=== PATIENT | female | born 1980 | race Caucasian/White ===

== ENCOUNTER 2020-04-01 02:59 | Emergency (ER) | payer SELFPAY ==
--- NOTE | 2020-04-01 03:05 | ECG_ITS ---
Measurements Intervals [place] Rate: 115 P: 46 GA: 154 QRS: 130 QRSD: 141 T: 2 QT: 342 QTc: 474 Interpretive Statements SINUS TACHYCARDIA RIGHT BUNDLE BRANCH BLOCK BASELINE ARTIFACT- II, III, AVF ABNORMAL ECG Electronically Signed On 04-01-2020 7:15:14 CDT by Harley Dennis D.O.
[2020-04-01 03:09] VITALS: BP 140/81; PULSE 116; RESP 20; TEMP 36.8; O2SAT 100
--- NOTE | 2020-04-01 04:26 | ED.ANXIETY ---
HPI - Anxiety General Chief Complaint: Anxiety Stated Complaint: anxiety, painc attack, shaking, palpitations Time Seen by Provider: 04/01/20 04:12 History of Present Illness HPI narrative: Patient presents with her mother for severe anxiety. She is having palpitations, and cannot sleep. She has a new job, that she has not started because of COVID, and she keeps worrying about it. She started BuSpar earlier in the week, and has some Xanax 0.25 that she takes half of. She was able to sleep for 5 hours last night on his Xanax. She said her heart is just pounding, and she keeps looking at her apple wrist watch, which records her heart rate. She thought it might be A. fibKim DE LOS SANTOS complaint: anxiety and heart racing Related Data Allergies Allergy/AdvReac Type Severity Reaction Status Date / Time Penicillins Allergy Unknown Unknown Verified 03/31/20 14:00 Review of Systems Review of Systems: Narrative: CONSTITUTIONAL: Denies fever, chills, or sweats. EYES: Denies visual changes, redness, or discharge. ENT: Denies rhinorrhea, congestion, sore throat, or otalgia. CARDIOVASCULAR: Denies chest pain, but she has palpitations. RESPIRATORY: Denies cough or dyspnea. GASTROINTESTINAL: Denies abdominal pain, nausea, vomiting, or diarrhea. GENITOURINARY: Denies dysuria or hematuria. SKIN: Denies rash or itching. MUSCULOSKELETAL: Denies back pain, joint pain, or myalgia. NEUROLOGIC: Denies headache, numbness, or weakness. PSYCHIATRIC: She has severe anxiety PMFSH Past Medical History Medical History (Updated 04/01/20 @ 04:33 by Gladis Singh MD) Anxiety Essential (primary) hypertension Family History Family History Father Hypertension Family history of respiratory disorder, Onset Age: 69 Patient's father is Mother Hypertension Sibling Hypertension Social History Social History Smoking status: Never smoker Alcohol intake: never Gender identity (if verbalized by the patient): Female Exam Narrative: Exam Narrative: GENERAL: Well-appearing, well-nourished, and in no acute distress. Hair is oily and stringy, overweight., HEAD: Normocephalic, atraumatic. EYES: PERRLA and EOMI. ENT: Nares clear, no rhinorrhea or epistaxis. Mucous membranes moist. NECK: Supple. CHEST: Clear to auscultation. No respiratory distress. HEART: Regular rate and rhythm. No murmur heard. Normal peripheral pulses. ABDOMEN: Soft, nontender, nondistended, normal active bowel sounds. EXTREMITIES: Normal range of motion. No edema. SKIN: Warm, dry, no rash. NEURO: No focal deficits. Alert and oriented x3. PSYCH: Flat affect, seems worried. Const: General: alert Course Vital Signs Vital signs: Vital Signs Temperature 98.3 F 04/01/20 03:09 Pulse Rate 116 H 04/01/20 03:09 Respiratory Rate 04/01/20 03:09 Blood Pressure 140/81 04/01/20 03:09 Pulse Oximetry 100 04/01/20 03:09 Temperature 98.3 F 04/01/20 03:09 Pulse Rate 116 H 04/01/20 03:09 Respiratory Rate 04/01/20 03:09 Blood Pressure 140/81 04/01/20 03:09 Pulse Oximetry 100 04/01/20 03:09 Discharge Plan Discharge Clinical Impression: Anxiety Patient Disposition: Home, Self-Care Condition: Stable Instructions: Anxiety (ED) Prescriptions: New clonazepam 0.5 mg tablet 0.5 mg PO HS Qty: 10 RF: 0 No Action buspirone 10 mg tablet 10 mg PO BID Qty: 60 RF: 2 lisinopril-hydrochlorothiazide 20-12.5 mg tablet 1 tablet PO DAILY Qty: 90 RF: 2 alprazolam [Xanax] 0.25 mg tablet 0.25 mg PO DAILY PRN (Reason: anxiety) Qty: 7 RF: 0 Follow-up/Referrals: Suhail Vazquez MD [Primary Care Provider] - (Call your doctor's office and give an update, consider a referral for counseling) Time of Disposition: 04:29
[2020-04-01 04:47] VITALS: BP 157/76; PULSE 89; RESP 17; O2SAT 95
== END 2020-04-01 04:48 | disposition home or self-care (01) ==
PROVIDERS: Emergency Provider Emergency Medicine; PCP Family Medicine
DX: F41.9 Anxiety disorder, unspecified (principal); I10 Essential (primary) hypertension; R00.0 Tachycardia, unspecified; I45.10 Unspecified right bundle-branch block
CPT/HCPCS: 93005; 99283

== ENCOUNTER 2020-04-09 14:57 | Observation (INO) | payer SELFPAY ==
[2020-04-09] VITALS (14 sets, daily range): BP systolic 137–161; BP diastolic 85–98; PULSE 88–129; RESP 14–24; TEMP 36.3; O2SAT 93–100; BMI 33.7
--- NOTE | ~2020-04-09 | CT_ITS ---
EXAMINATION: CTA chest PE protocol DATE: 04/09/2020 17:33 INDICATION: Tachycardia and chest pain TECHNIQUE: Computed tomography angiography (CTA) of the chest was performed with 100 mL Omnipaque-350 intravenous contrast timed to evaluate the pulmonary arteries. Coronal maximum intensity projection 3D-reconstructions were created by the technologist. The dose-length product (DLP) was 516.01 mGy-cm. Automated exposure control and iterative reconstruction technique were employed. COMPARISON: None. FINDINGS: The pulmonary arteries are well-opacified. There is a filling defect in a subsegmental pulm onary arterial branch of the left lower lobe. The lungs are free of acute opacities. There is no pleu ral effusion or pneumothorax. No pathologically enlarged thoracic lymph nodes are identified. The hea rt size is normal. IMPRESSION: 1. Subsegmental pulmonary embolus in the left lower lobe. These findings were discussed with Dr. Tracey Terrell MD in the Emergency Department at 1811 hours on 04/09/2020. Reviewed, dictated and finalized at location A. IMPRESSION: 1. Subsegmental pulmonary embolus in the left lower lobe. These findings were d iscussed with Dr. Mara Terrell MD in the Emergency Department at 1811 hour s on 04/09/2020.
--- NOTE | 2020-04-09 15:22 | ECG_ITS ---
Measurements Intervals [place] Rate: 116 P: 59 OR: 155 QRS: 109 QRSD: 145 T: 2 QT: 338 QTc: 470 Interpretive Statements SINUS TACHYCARDIA RIGHT AXIS DEVIATION RIGHT BUNDLE BRANCH BLOCK BASELINE ARTIFACT- II, III, AVF ABNORMAL ECG Electronically Signed On 04-09-2020 15:36:18 CDT by Harley Dennis D.O.
--- NOTE | 2020-04-09 15:25 | ED.ARRPALP ---
HPI - Arrhythmia/Palpitations General Chief Complaint: Arrhythmia/Palpitations Stated Complaint: palpitations, short of breath Time Seen by Provider: 04/09/20 15:09 Source: patient Mode of arrival: ambulatory Limitations: no limitations History of Present Illness HPI narrative: This patient is a 39 year old female who presents for evaluation of palpitations. She states lost her job in December due to COVID 19 and she has been without a job since . She developed symptoms of anxiety in January. She has intermittent sensation of a knot in her throat since mid january. She also reports intermittent palpitations, heart racing and anxiousness as well. She has been evaluated by her PCP and she was started on Buspar and she is on day 10 of this medication. She is also getting scheduled for a holter monitor. She has come to ER today because she developed heart racing, palpitation and nonradiating chest pain when she woke up today. Her chest pressure was nonradiating and it only last a couple minutes. Patient states she has had these symptoms before but she wants to get checked to make sure there is nothing serious. MD complaint: palpitations Related Data Allergies Allergy/AdvReac Type Severity Reaction Status Date / Time Penicillins Allergy Unknown Rash Verified 04/09/20 15:08 Review of Systems Review of Systems: All systems reviewed & are unremarkable except as noted in HPI and below Constitutional: Constitutional: Denies chills, Reports fatigue, Denies fever(s) and Denies weakness Cardiovascular: Cardiovascular: Reports chest pain, Reports rapid heart rate, Denies radiating jaw, neck or arm pain, Denies dyspnea and Denies orthopnea Respiratory: Respiratory: Denies cough, Denies dyspnea and Denies wheezing Gastrointestinal: Gastrointestinal: Denies abdominal pain, Denies diarrhea, Denies nausea and Denies vomiting Integumentary/Breasts: Skin/Breast: Denies breast pain Neurologic: Denies focal weakness Psychiatric: Psychiatric: Reports anxiety PMFSH Social History Social History Smoking status: Never smoker Alcohol intake: never Gender identity (if verbalized by the patient): Female Exam Narrative: Exam Narrative: GENERAL: Well-appearing, well-nourished, and in no acute distress. HEAD: Normocephalic, atraumatic EYES: PERRLA and EOMI, conjunctiva clear without discharge NECK: Supple, without lymphadenopathy or mass RESPIRATORY: No respiratory distress, Airway patent, Respirations non-labored, Clear to auscultation without rales, rhonchi or wheeze HEART: Regular rate and rhythm. No murmur heard. Normal peripheral pulses. ABDOMEN: Soft, nontender, nondistended, normal active bowel sounds. No masses. No rebound or guarding, No organomegaly. EXTREMITIES: No edema, normal strength with full range of motion. SKIN: Warm, dry, normal color without rash NEURO: Alert and oriented x3. CN 2-12 grossly intact. No focal deficits. PSYCH: Normal mood and affect. Course Reevaluation(s) Reevaluation #1: I have discussed with patient that she has PE and she will be admitted Date: 04/09/20 Time: 18:56 Consultations Consultation #1: I discussed case with Lakshmi Torres who accepts patient for admission. Date: 04/09/20 Time: 18:57 Vital Signs Vital signs: Vital Signs Pulse Rate 129 H 04/09/20 15:03 Respiratory Rate 24 H 04/09/20 15:03 Blood Pressure 161/93 H 04/09/20 15:03 Pulse Oximetry 99 04/09/20 15:03 Pulse Rate 95 04/09/20 19:15 Respiratory Rate 17 04/09/20 19:15 Blood Pressure 154/98 H 04/09/20 19:03 Pulse Oximetry 99 04/09/20 19:15 MDM - Arrhythmia/Palpitations Lab Data Attestation: I reviewed the patient's lab results. Result diagrams: 04/09/20 15:31 04/09/20 15:31 Labs: Lab Results 04/09/20 04/09/20 04/09/20 Range/Units 15:31 15:31 15:31 WBC 11.4 H (4.5-10.0) K/mm3 RBC 4.75
[2020-04-09 15:38] LABS: Basophils Percent Auto 0.4 % (0.2-1.2); Eosinophils Absolute Auto 0.1 K/mm3 (0-0.3); Eosinophils Percent Auto 0.6 % (0-4.4); Hematocrit 39.5 % (37.0-47.0); Hemoglobin 13.9 g/dL (12.0-15.0); Immature Granulocyte Absolute 0.04 K/mm3 (0.00-0.031); Immature Granulocyte Percent A 0.4 % (0-0.5); Lymphocytes Absolute Auto 2.77 K/mm3 (0.9-3.2); Lymphocytes Percent Auto 24.4 % (18.3-44.2); Mean Corpuscular HGB Conc 35.2 g/dl (32-36); Mean Corpuscular Hemoglobin 29.3 pg (26-34); Mean Corpuscular Volume 83.2 fl (80-100); Mean Platelet Volume 9.2 fl (7.4-10.4); Monocytes Absolute Auto 0.7 K/mm3 (0.1-0.6); Monocytes Percent Auto 6.4 % (2.6-8.5); Neutrophils Absolute Auto 7.7 K/mm3 (1.3-6.7); Neutrophils Percent Auto 67.8 % (45.5-73.1); Platelet Count Result 444 k/mm3 (150-375); Red Blood Count 4.75 M/mm3 (4.2-5.4); Red Cell Distribution Width 12.1 % (11.5-14.5); White Blood Count 11.4 K/mm3 (4.5-10.0)
[2020-04-09 16:00] LABS: Prothrombin Time 12.7 Seconds (11.1-14.7)
[2020-04-09 16:25] LABS: Alanine Aminotransferase 21 U/L (4-35); Albumin Level 4.9 g/dL (3.5-5.1); Alkaline Phosphatase 62 U/L (38-126); Aspartate Amino Transferase 25 U/L (14-36); Bilirubin,Total 0.7 mg/dL (0.2-1.3); Blood Urea Nitrogen 10 mg/dL (7-17); Calcium 9.6 mg/dL (8.4-10.2); Carbon Dioxide 24 mmol/L (22-30); Chloride 100 mmol/L (98-107); Estimated CRCL calculation 144 ml/min; Estimated Glomerular Filt Rate > 60; Glucose 106 mg/dL (65-105); Potassium 3.7 mmol/L (3.4-5.0); Sodium 137 mmol/L (137-145)
[2020-04-09 16:33] LABS: Troponin I < 0.012 ng/mL (0.000-0.034)
--- NOTE | 2020-04-09 17:12 | PC.NURSE ---
Pt continues to deny cp, states she's a little less anxious than on arrival, and palpitations have decreased. Made aware of pending labs and possibility of need for 3 hr troponin. Pt is refusing a test there's no way that I'm , and states will sign a release.
[2020-04-09 18:02] LABS: Thyroid Stimulating Hormone Reflex 0.693 uIU/mL (0.465-4.68)
[2020-04-09] MEDS: ENOXAPARIN 120 MG/0.8 ML SYRINGE SUB-Q (19:05)
[2020-04-09 19:09] LABS: Troponin I < 0.012 ng/mL (0.000-0.034)
--- NOTE | 2020-04-09 19:23 | PC.NURSE ---
Report to LYNDSAY Grey, to continue care. Awaiting admit orders and bed assignment.
--- NOTE | 2020-04-09 20:25 | ADMGEN ---
This patient, Kirsten Coleman, was admitted to Medical Room 347-. Patient/family oriented to hospital policies and general routines including ID bracelet, bed and alarms, visiting hours, pain management, procedures, bathroom and other care routines, personal items, smoking policy, room service/diet, and visiting hours. Valuables list has been completed. Information on how to activate the Rapid Response Team has been discussed. Patient/Family are encouraged to report perceived risks to care and to ask questions if they do not understand what they are told or what they should do.
--- NOTE | 2020-04-09 23:10 | PM.IMHP ---
H&P: HPI History of Present Illness Chief complaint: PE Narrative: Kirsten Coleman is a 39 year old female who deals with some anxiety. The patient stated since this past January she has had this lump in her throat and thought that is possibly anxiety. On 02/15 she had a telephone visit and was diagnosed with anxiety. This month the patient was seen on 03/31 2020 and had had EKGs her palpitations showing right bundle-branch block. Patient was started on BuSpar but was getting upset stomach from it. On 04/01 she is having the same symptoms and was started on clonazepam. She stated she did want to take clonazepam and never started it. On omeprazole for possible GERD and was given Zofran. She was also ordered Xanax for anxiety. The patient presented to the emergency room with evaluation of palpitations. She lost her job back in December in her new job did not start due to the COVID outbreak. She has had a not the back of her throat since mid January. She has had some chest pressure is well that was nonradiating. The patient was scheduled for getting a Holter monitor and has not done so he as of yet. The patient was fearful of medical treatment and she has no insurance at this time. Her insurance ran out her new insurance will not kick in until about 60-90 days after she starts her new job. She had a CT pulmonary which was read as subsegmental pulmonary embolus in the left lower lobe. Patient was started on subcu Lovenox. The patient is on room air. I suggested that the patient be discharged to home was Xarelto. However the patient does not have any medical insurance. We discussed possibly starting Xarelto. [employer]arelto offers some free to discount cards. Was read as sinus tachycardia with a right bundle branch block which was seen on previous EKGs. At times her heart rate will get up to the 150s when she gets up to the bathroom. Date of service 04/09/2020 Review of Systems Review of Systems: All systems reviewed & are unremarkable except as noted in HPI and below Constitutional: Constitutional: Reports as per HPI and Reports no additional constitutional complaints Eyes: Eyes: Reports as per HPI and Reports no additional eye complaints ENT: Reports system reviewed and no additional complaints, except as documented and Reports Normal hearing present Cardiovascular: Cardiovascular: Reports no additional cardiovascular complaints Respiratory: Respiratory: Reports no additional respiratory complaints and Reports no additional respiratory complaints Gastrointestinal: Gastrointestinal: Reports as per HPI and Reports no additional gastrointestinal complaints Musculoskeletal: Musculoskeletal: Reports no additional musculoskeletal complaints Integumentary/Breasts: Skin/Breast: Reports system reviewed and no additional complaints, except as docu and Reports as per HPI Neurologic: Reports system reviewed and no additional complaints, except as documented, Reports as per HPI and Reports Normal hearing present Psychiatric: Psychiatric: Reports no additional psychiatric complaints and Reports as per HPI Endocrine: Endocrine: Reports no additional endocrine complaints Hematologic/Lymphatic: Hematologic/Lymphatic: Reports no additional hematologic/lymphatic complaints Allergic/Immunologic: Allergic/Immunologic: Reports no additional allergic/immunologic complaints PMF Past Medical History Medical History (Updated 04/09/20 @ 23:26 by Lakshmi Torres NP) Anxiety Bundle branch block Right Essential (primary) hypertension Surgical History Surgical History (Updated 04/09/20 @ 23:19 by Lakshmi Torres NP) S/P hernia repair Ventral hernia repair at the age of 9 Family History Family History Father Family history of respiratory disorder, Onset Age: 69 Patient's father is Hypertension Asthma Chronic obstructive pulmonary disease Mother Hypertension Sibling Hy
[2020-04-10] VITALS (7 sets, daily range): BP systolic 127–135; BP diastolic 72–78; PULSE 78–98; RESP 14–22; TEMP 36.2–36.7; O2SAT 97–100
[2020-04-10] MEDS: NAPROXEN SODIUM 220 MG TABLET 440 MG PO (01:04)
[2020-04-10] MEDS: ALPRAZOLAM 0.25 MG TABLET 0.5 MG PO (04:33)
[2020-04-10 06:12] LABS: Hematocrit 36.7 % (37.0-47.0); Hemoglobin 12.7 g/dL (12.0-15.0); Mean Corpuscular HGB Conc 34.6 g/dl (32-36); Mean Corpuscular Hemoglobin 28.7 pg (26-34); Mean Corpuscular Volume 82.8 fl (80-100); Mean Platelet Volume 8.6 fl (7.4-10.4); Platelet Count Result 303 k/mm3 (150-375); Red Blood Count 4.43 M/mm3 (4.2-5.4); Red Cell Distribution Width 12.1 % (11.5-14.5)
[2020-04-10 06:26] LABS: Blood Urea Nitrogen 14 mg/dL (7-17); Carbon Dioxide 27 mmol/L (22-30); Chloride 98 mmol/L (98-107); Estimated CRCL calculation 95 ml/min; Estimated Glomerular Filt Rate > 60; Glucose 89 mg/dL (65-105); Potassium 3.9 mmol/L (3.4-5.0); Sodium 135 mmol/L (137-145)
[2020-04-10] MEDS: PANTOPRAZOLE 40 MG TABLET PO (08:33)
[2020-04-10] MEDS: hydroCHLOROthiazide 12.5 MG CAPSULE PO (08:33)
[2020-04-10] MEDS: lisinopriL 20 MG TABLET PO (08:33)
[2020-04-10] MEDS: busPIRone HCL 10 MG TABLET PO (08:33)
[2020-04-10] MEDS: ENOXAPARIN 100 MG/ML SYRINGE 95 MG SUB-Q ×2 (09:03→15:10)
--- NOTE | 2020-04-10 14:01 | PM.DS ---
DS: Admitting Diagnosis Admitting Diagnosis Admitting Diagnosis: Other pulmonary embolism without acute cor pulmonale DS: Discharge Diagnosis Discharge Diagnosis (1) Pulmonary embolism: Qualifiers: Pulmonary embolism type: single subsegmental (without acute cor pulmonale) Qualified Code(s): I26.93 - Single subsegmental pulmonary embolism without acute cor pulmonale Code(s): I26.99 - Other pulmonary embolism without acute cor pulmonale Status: Acute (2) Essential (primary) hypertension: Code(s): I10 - Essential (primary) hypertension Status: Chronic (3) Anxiety: Code(s): F41.9 - Anxiety disorder, unspecified Status: Acute (4) Bundle branch block: Code(s): I45.4 - Nonspecific intraventricular block Status: Chronic (5) GERD with esophagitis: Code(s): K21.0 - Gastro-esophageal reflux disease with esophagitis Status: Chronic DS: Summary Hospital Course Reason for hospitalization: Pulmonary Embolism Hospital Course: Mrs. Coleman is a 39 y.o. female with PMH significant for anxiety, right bundle branch block, and essential hypertension who presented to the emergency department for the evaluation of palpitations which began 12 days ago, anxiety, and non-radiating chest pressure which lasted for a couple minutes. She was prescribed buspar by her PCP 10 days prior. Initial workup in the ED revealed WBC 11.4, Hb 13.9, Hct 39.5, platelet count 444, D-Dimer 0.8, troponin was <0.012x2, and TSH 0.693. Metabolic panel was unremarkable. CTA chest revealed subsegmental PE in the left lower lobe with no other opacities, effusion, or pneumothorax. She was treated with lovenox SQ in the ED. She was admitted to the hospitalist service for further evaluation and treatment. She does not have insurance at this time so a care coordination consult was placed and she was given a [employer] card for a free 30 day supply. She was monitored on telemetry which revealed sinus tachycardia with activity with rates up to 130-150s but remained asymptomatic during these episodes and did not complain of lightheadedness, dizziness, or weakness. She had very infrequent PVCs. She reported that her palpitations have only been present for 12 days so I suspect that her sinus tachycardia is due to her PE and advised that she follow-up with her PCP and possibly cardiology should her palpitations persist despite treatment of her PE. She requested to go home. She did not require oxygen and was stable on room air without dyspnea. I advised that she follow-up with her PCP within 5 days. She is planning to begin her new job next so I advised she follow-up with her PCP prior to this. All additional questions and concerns were addressed. She was discharged in stable condition on the afternoon of 04/10/2020. Status at Discharge Functional status at discharge: independent ambulation Overall status at discharge: patient is back to baseline Time Spent with Patient Time attestation: Total time spent providing and/or coordinating discharge services: 30 minutes Exam Narrative: Exam Narrative: Initial vitals at presentation: Pulse Resp BP Pulse Ox 129 H 24 H 161/93 H 99 04/09/20 15:03 04/09/20 15:03 04/09/20 15:03 04/09/20 15:03 Vitals at discharge: Temp Pulse Resp BP Pulse Ox 98.0 F 98 18 127/72 97 04/10/20 15:13 04/10/20 15:13 04/10/20 15:13 04/10/20 15:13 04/10/20 15:13 General: Pleasant, well-developed and well-nourished 39 y.o. female who is sitting in the semi-recumbent position in bed resting. She is in no acute distress. HEENT: Normocephalic and atraumatic. Conjunctivae and lids normal. EOMI. Mucous membranes moist. Posterior pharynx without erythema or exudate. N
--- NOTE | 2020-04-10 14:40 | PC.NURSE ---
Per the pharmacist Santa, pt can receive tonights dose of lovenox early as early as 1500 or after as requested per Leola RODRÍGUEZ.
--- NOTE | 2020-04-11 12:54 | PC.NURSE ---
Received a call from the pt with concerns of her symptoms that were still occuring from her PE. She stated she was still having palpations, slightly short of breath, and having some discomfort in her chest but it wasn't anything terrible. I encouraged her to call her PCP exchange number to let them know what was going on. They may direct her to the ER but the symptoms she was having even while in the hospital for the PE may take some time to resolve.
== END 2020-04-10 15:46 | disposition home or self-care (01) ==
LOC: ANHED 19:04 → ANH3MED 21:01
PROVIDERS: Nurse Practitioner; Admitting Provider Family Medicine; Emergency Provider General Practice; PCP Family Medicine; Visit Provider Physician Assistant
DX: I26.99 Other pulmonary embolism without acute cor pulmonale (principal); F41.8 Other specified anxiety disorders; I45.10 Unspecified right bundle-branch block; I10 Essential (primary) hypertension; K21.0 Gastro-esophageal reflux disease with esophagitis; R06.02 Shortness of breath
CPT/HCPCS: 36415; 71275; 80048; 80053; 83735; 84443; 84484; 85025; 85027; 85380; 85610; 85730; 93005; 96372; 99285; A9270; G0378; G0379; J1650; Q9967

== ENCOUNTER → 2020-11-24 08:19 | Outpatient (CLI) | payer OTHER, SELFPAY ==
--- NOTE | ~2020-11-24 | CT_ITS ---
EXAMINATION: CTA chest PE protocol DATE: 11/24/2020 09:27 INDICATION: Subsegmental pulmonary embolus of left lower lobe on 04/09/2020 TECHNIQUE: Computed tomography angiography (CTA) of the chest was performed with 100 mL Omnipaque-350 intravenous contrast timed to evaluate the pulmonary arteries. Coronal maximum intensity projection 3D-reconstructions were created by the technologist. Automated exposure control and iterative reconst ruction technique were employed. Exam dose: 500.22 mGy-cm total exam DLP. COMPARISON: 04/09/2020 CT pulmonary scan FINDINGS: Right thyroid lobe enlargement, likely due to thyroid goiter. Normal heart size. No pericardial effusion. No thoracic aortic aneurysm or dissection. There is moderate opacification the pulmonary arteries and no evidence of pulmonary embolism. The lungs are clear of infiltrate or consolidation. No pulmonary mass lesion is evident. Included skeletal structures are unremarkable. IMPRESSION: No evidence of pulmonary embolism Reviewed, dictated and finalized at Location [facility]. Reviewed, dictated and finalized at location B. ICAL CARE NURSE
== END ==
PROVIDERS: PCP Family Medicine; Visit Provider Family Medicine
DX: I26.93 Single subsegmental thrombotic pulmonary embolism without acute cor pulmonale (principal)
CPT/HCPCS: 71275; Q9967

== ENCOUNTER 2020-11-27 08:34 | Outpatient (CLI) | payer OTHER, SELFPAY ==
[2020-11-27 08:52] LABS: Basophils Percent Auto 0.3 % (0.2-1.2); Eosinophils Absolute Auto 0.2 K/mm3 (0-0.3); Eosinophils Percent Auto 3.3 % (0-4.4); Hematocrit 29.4 % (37.0-47.0); Hemoglobin 8.7 g/dL (12.0-15.0); Immature Granulocyte Absolute 0.01 K/mm3 (0.00-0.031); Immature Granulocyte Percent A 0.2 % (0-0.5); Lymphocytes Absolute Auto 1.54 K/mm3 (0.9-3.2); Lymphocytes Percent Auto 25.7 % (18.3-44.2); Mean Corpuscular HGB Conc 29.6 g/dl (32-36); Mean Corpuscular Hemoglobin 21.6 pg (26-34); Mean Platelet Volume 8.6 fl (7.4-10.4); Monocytes Absolute Auto 0.4 K/mm3 (0.1-0.6); Monocytes Percent Auto 6.7 % (2.6-8.5); Neutrophils Absolute Auto 3.8 K/mm3 (1.3-6.7); Neutrophils Percent Auto 63.8 % (45.5-73.1); Platelet Count Result 280 k/mm3 (150-375); Red Blood Count 4.03 M/mm3 (4.2-5.4); Red Cell Distribution Width 16.9 % (11.5-14.5)
[2020-11-27 09:18] LABS: Anisocytosis 1+ (NORMAL); Hypochromasia 1+ (NORMAL); Ovalocytes 1+ (NORMAL); Platelet Estimate Adequate (Adequate)
[2020-11-27 09:44] LABS: Thyroid Stimulating Hormone 0.945 uIU/mL (0.465-4.680)
== END 2020-11-27 08:35 | disposition home or self-care (01) ==
PROVIDERS: PCP Family Medicine; Visit Provider Nurse Practitioner Family
DX: E04.9 Nontoxic goiter, unspecified (principal); D64.9 Anemia, unspecified
CPT/HCPCS: 36415; 84443; 85025

== ENCOUNTER 2020-12-04 08:18 | Outpatient (CLI) | payer OTHER, SELFPAY ==
[2020-12-04 08:45] LABS: Basophils Percent Auto 0.9 % (0.2-1.2); Eosinophils Absolute Auto 0.2 K/mm3 (0-0.3); Eosinophils Percent Auto 3.9 % (0-4.4); Hematocrit 27.9 % (37.0-47.0); Hemoglobin 8.3 g/dL (12.0-15.0); Immature Granulocyte Absolute 0.01 K/mm3 (0.00-0.031); Immature Granulocyte Percent A 0.2 % (0-0.5); Lymphocytes Absolute Auto 1.37 K/mm3 (0.9-3.2); Lymphocytes Percent Auto 29.7 % (18.3-44.2); Mean Corpuscular HGB Conc 29.7 g/dl (32-36); Mean Corpuscular Hemoglobin 22.1 pg (26-34); Mean Corpuscular Volume 74.2 fl (80-100); Mean Platelet Volume 8.7 fl (7.4-10.4); Monocytes Absolute Auto 0.3 K/mm3 (0.1-0.6); Monocytes Percent Auto 7.4 % (2.6-8.5); Neutrophils Absolute Auto 2.7 K/mm3 (1.3-6.7); Neutrophils Percent Auto 57.9 % (45.5-73.1); Platelet Count Result 320 k/mm3 (150-375); Red Blood Count 3.76 M/mm3 (4.2-5.4); Red Cell Distribution Width 18.6 % (11.5-14.5); White Blood Count 4.6 K/mm3 (4.5-10.0)
[2020-12-04 09:18] LABS: Platelet Estimate Adequate (Adequate)
[2020-12-04 09:19] LABS: Anisocytosis 1+ (NORMAL); Ovalocytes 1+ (NORMAL)
== END 2020-12-04 08:19 | disposition home or self-care (01) ==
LOC: ANHLAB 08:19
PROVIDERS: PCP Family Medicine; Visit Provider Nurse Practitioner Family
DX: D64.9 Anemia, unspecified (principal)
CPT/HCPCS: 36415; 85025

== ENCOUNTER → 2020-12-06 07:52 | Outpatient (CLI) | payer OTHER, SELFPAY ==
--- NOTE | ~2020-12-06 | US_ITS ---
EXAMINATION: US thyroid DATE: 12/06/2020 08:16 INDICATION: Nontoxic goiter. TECHNIQUE: Multiple ultrasound images of the thyroid were obtained. COMPARISON: Chest CT 11/24/2020 FINDINGS: The right thyroid lobe measures 5.6 x 2.5 x 2.3 cm. The left thyroid lobe measures 3.0 x 2.2 x 2.3 c m. In the left thyroid lobe, there is a 4 mm nodule, likely not clinically significant. In the right thyroid lobe, there is a 3.0 cm predominantly solid, hypoechoic, koclw-rnxt-hory nodule with smooth margin without echogenic foci (TI-RADS TR4). IMPRESSION: 1. Multinodular goiter. Ultrasound-guided fine-needle aspiration of the right thyroid nodule is recom mended. Reviewed, dictated and finalized at location B. A [employer] HEL[employer] IMPRESSION: 1. Multinodular goiter. Ultrasound-guided fine-needle aspiration of the right t hyroid nodule is recommended.
== END ==
PROVIDERS: PCP Family Medicine; Visit Provider Nurse Practitioner Family
DX: E04.2 Nontoxic multinodular goiter (principal)
CPT/HCPCS: 76536

== ENCOUNTER 2020-12-11 07:55 | Outpatient (CLI) | payer OTHER, SELFPAY ==
[2020-12-11 08:22] LABS: Basophils Percent Auto 0.6 % (0.2-1.2); Eosinophils Absolute Auto 0.2 K/mm3 (0-0.3); Eosinophils Percent Auto 3.9 % (0-4.4); Hematocrit 30.2 % (37.0-47.0); Immature Granulocyte Absolute 0.01 K/mm3 (0.00-0.031); Immature Granulocyte Percent A 0.2 % (0-0.5); Lymphocytes Absolute Auto 1.21 K/mm3 (0.9-3.2); Lymphocytes Percent Auto 22.4 % (18.3-44.2); Mean Corpuscular HGB Conc 29.8 g/dl (32-36); Mean Corpuscular Hemoglobin 22.6 pg (26-34); Mean Corpuscular Volume 75.7 fl (80-100); Mean Platelet Volume 8.6 fl (7.4-10.4); Monocytes Absolute Auto 0.4 K/mm3 (0.1-0.6); Monocytes Percent Auto 7.6 % (2.6-8.5); Neutrophils Absolute Auto 3.5 K/mm3 (1.3-6.7); Neutrophils Percent Auto 65.3 % (45.5-73.1); Platelet Count Result 408 k/mm3 (150-375); Red Blood Count 3.99 M/mm3 (4.2-5.4); Red Cell Distribution Width 20.4 % (11.5-14.5); White Blood Count 5.4 K/mm3 (4.5-10.0)
[2020-12-11 09:39] LABS: Hypochromasia 3+ (NORMAL); Platelet Estimate Adequate (Adequate)
== END 2020-12-11 07:56 | disposition home or self-care (01) ==
PROVIDERS: Family Provider Internal Medicine; PCP Family Medicine; Visit Provider Nurse Practitioner Family
DX: D64.9 Anemia, unspecified (principal)
CPT/HCPCS: 36415; 85025

== ENCOUNTER 2021-01-01 09:05 | Outpatient (CLI) | payer OTHER, SELFPAY ==
[2021-01-01 09:43] LABS: Hematocrit 34.2 % (37.0-47.0); Hemoglobin 10.6 g/dL (12.0-15.0); Mean Corpuscular Hemoglobin 24.1 pg (26-34); Mean Corpuscular Volume 77.7 fl (80-100); Mean Platelet Volume 9.1 fl (7.4-10.4); Platelet Count Result 278 k/mm3 (150-375); Red Cell Distribution Width 22.5 % (11.5-14.5); White Blood Count 5.5 K/mm3 (4.5-10.0)
[2021-01-01 10:14] LABS: Iron 61 ug/dL (37-170)
[2021-01-01 10:23] LABS: Percent Iron Saturation 16 % (20-50)
== END 2021-01-01 09:06 | disposition home or self-care (01) ==
PROVIDERS: PCP Family Medicine; Visit Provider Family Medicine
DX: D64.9 Anemia, unspecified (principal)
CPT/HCPCS: 36415; 83540; 83550; 85027

== ENCOUNTER 2021-01-29 07:05 | Outpatient (CLI) | payer OTHER, SELFPAY ==
[2021-01-29 07:33] LABS: Basophils Percent Auto 0.5 % (0.2-1.2); Eosinophils Absolute Auto 0.2 K/mm3 (0-0.3); Eosinophils Percent Auto 3.9 % (0-4.4); Hematocrit 35.4 % (37.0-47.0); Hemoglobin 11.3 g/dL (12.0-15.0); Immature Granulocyte Absolute 0.01 K/mm3 (0.00-0.031); Immature Granulocyte Percent A 0.2 % (0-0.5); Lymphocytes Absolute Auto 1.67 K/mm3 (0.9-3.2); Lymphocytes Percent Auto 29.6 % (18.3-44.2); Mean Corpuscular HGB Conc 31.9 g/dl (32-36); Mean Corpuscular Hemoglobin 25.3 pg (26-34); Mean Corpuscular Volume 79.2 fl (80-100); Mean Platelet Volume 8.9 fl (7.4-10.4); Monocytes Absolute Auto 0.4 K/mm3 (0.1-0.6); Monocytes Percent Auto 6.4 % (2.6-8.5); Neutrophils Absolute Auto 3.4 K/mm3 (1.3-6.7); Neutrophils Percent Auto 59.4 % (45.5-73.1); Platelet Count Result 234 k/mm3 (150-375); Red Blood Count 4.47 M/mm3 (4.2-5.4); Red Cell Distribution Width 20.1 % (11.5-14.5); White Blood Count 5.6 K/mm3 (4.5-10.0)
[2021-01-29 08:06] LABS: Iron 98 ug/dL (37-170)
[2021-01-29 08:15] LABS: Percent Iron Saturation 28 % (20-50)
== END 2021-01-29 07:06 | disposition home or self-care (01) ==
PROVIDERS: PCP Family Medicine; Visit Provider Physician Assistant Medical
DX: D50.9 Iron deficiency anemia, unspecified (principal)
CPT/HCPCS: 36415; 83540; 83550; 85025

== ENCOUNTER 2021-03-19 09:48 | Outpatient (CLI) | payer OTHER, SELFPAY ==
[2021-03-19 10:08] LABS: Basophils Percent Auto 0.8 % (0.2-1.2); Eosinophils Absolute Auto 0.2 K/mm3 (0-0.3); Eosinophils Percent Auto 3.3 % (0-4.4); Hematocrit 36.2 % (37.0-47.0); Hemoglobin 11.8 g/dL (12.0-15.0); Immature Granulocyte Absolute 0.01 K/mm3 (0.00-0.031); Immature Granulocyte Percent A 0.2 % (0-0.5); Lymphocytes Absolute Auto 1.53 K/mm3 (0.9-3.2); Lymphocytes Percent Auto 29.9 % (18.3-44.2); Mean Corpuscular HGB Conc 32.6 g/dl (32-36); Mean Corpuscular Hemoglobin 27.8 pg (26-34); Mean Corpuscular Volume 85.2 fl (80-100); Mean Platelet Volume 8.6 fl (7.4-10.4); Monocytes Absolute Auto 0.4 K/mm3 (0.1-0.6); Monocytes Percent Auto 7.8 % (2.6-8.5); Platelet Count Result 214 k/mm3 (150-375); Red Blood Count 4.25 M/mm3 (4.2-5.4); Red Cell Distribution Width 15.5 % (11.5-14.5); White Blood Count 5.1 K/mm3 (4.5-10.0)
[2021-03-19 10:48] LABS: Iron 161 ug/dL (37-170)
[2021-03-19 10:58] LABS: Percent Iron Saturation 50 % (20-50)
== END 2021-03-19 09:49 | disposition home or self-care (01) ==
LOC: ANHLAB 09:50
PROVIDERS: PCP Family Medicine; Visit Provider Physician Assistant Medical
DX: D50.9 Iron deficiency anemia, unspecified (principal)
CPT/HCPCS: 36415; 83540; 83550; 85025

== ENCOUNTER 2024-02-06 12:28 | Outpatient (CLI) | payer BC, SELFPAY ==
--- NOTE | ~2024-02-06 | MM_ITS ---
EXAMINATION: MM screening gregg BI w winnie HISTORY: Screening TECHNIQUE: Craniocaudal and mediolateral oblique 3-D tomosynthesis images were obtained and synthetic 2-D images were generated. CAD analysis was submitted and interpreted. COMPARISON: No prior mammogram is available for comparison at this institution. BREAST PARENCHYMAL COMPOSITION: Not dense: There are scattered areas of fibroglandular density. FINDINGS: There is a mass in the lower inner quadrant of the right breast, middle third. There is a m ass in the upper outer quadrant of the left breast, middle third. There are no suspicious calcificati ons or architectural distortion. IMPRESSION: 1. Bilateral breast masses. 2. Additional mammographic views and possible breast ultrasound are recommended. BI-RADS Category 0: Incomplete: Needs additional imaging evaluation. Reviewed, dictated and finalized at location A. IMPRESSION: 1. Bilateral breast masses. 2. Additional mammographic views and possible breast ultrasound are recommended . BI-RADS Category 0: Incomplete: Needs additional imaging evaluation.
== END 2024-02-06 12:29 ==
LOC: MICIMG 12:29
PROVIDERS: PCP Nurse Practitioner Family; Visit Provider Nurse Practitioner Family
DX: Z12.31 Encounter for screening mammogram for malignant neoplasm of breast (principal); R92.8 Other abnormal and inconclusive findings on diagnostic imaging of breast
CPT/HCPCS: 77063; 77067

== ENCOUNTER 2024-03-05 10:31 | Outpatient (CLI) | payer BC, SELFPAY ==
--- NOTE | ~2024-03-05 | MMUS_ITS ---
EXAMINATION: MM diagnostic gregg BI w winnie, US breast BI limited HISTORY: Bilateral breast masses seen on recent examination. TECHNIQUE: Additional 3-D tomosynthesis images of the breasts were performed and synthetic 2-D images were generated. CAD analysis was submitted and interpreted. High resolution limited bilateral breast ultrasound was performed. COMPARISON: 02/06/2024 BREAST PARENCHYMAL COMPOSITION: Not dense: There are scattered areas of fibroglandular density. FINDINGS: MAMMOGRAPHIC FINDINGS: There is a mass in the lower inner quadrant of the right breast, middle third. There is a mass in the upper outer quadrant of the left breast, posteriorly. There are no suspicious calcifications or arch itectural distortion in either breast. ULTRASOUND: Limited right breast ultrasound: At 6:00, 4 cm from the nipple, there is a 7 mm cyst corresponding to the mammographic finding. No other masses are seen. Limited left breast ultrasound: At 1:00, 9 cm from the nipple there is an oval hypoechoic circumscrib ed mass with parallel orientation, no significant posterior features and no internal vascularity ceci uring 9 x 7 x 4 mm, likely benign. IMPRESSION: 1. No evidence for malignancy in the right breast. Benign finding. BI-RADS Category 2. 2. Probable benign left breast mass at 1:00, 9 cm from the nipple. BI-RADS CATEGORY 3-PROBABLY BENIGN FINDING RECOMMENDATION: Six-month follow-up diagnostic left mammogram and ultrasound recommended. Reviewed, dictated and finalized at location B. IMPRESSION: 1. No evidence for malignancy in the right breast. Benign finding. BI-RADS Marie gory 2. 2. Probable benign left breast mass at 1:00, 9 cm from the nipple. BI-RADS CATEGORY 3-PROBABLY BENIGN FINDING RECOMMENDATION: Six-month follow-up diagnostic left mammogram and ultrasound re commended.
== END 2024-03-05 10:32 | disposition home or self-care (01) ==
LOC: ANHIMG 10:38
PROVIDERS: PCP Nurse Practitioner Family; Visit Provider Physician Assistant
DX: N63.14 Unspecified lump in the right breast, lower inner quadrant (principal); N63.21 Unspecified lump in the left breast, upper outer quadrant; R92.8 Other abnormal and inconclusive findings on diagnostic imaging of breast
CPT/HCPCS: 76642; 77062; 77066; G0279

== ENCOUNTER 2024-09-15 12:11 | Outpatient (CLI) | payer BC, SELFPAY ==
--- NOTE | ~2024-09-15 | MMUS_ITS ---
EXAMINATION: MM diagnostic gregg LT w winnie, US breast LT limited HISTORY: 6 month follow-up TECHNIQUE: Additional 3-D tomosynthesis images of the left breast were performed and synthetic 2-D im ages were generated. CAD analysis was submitted and interpreted. High resolution limited left breast ultrasound was performed. COMPARISON: 03/05/2024 BREAST PARENCHYMAL COMPOSITION:Not Dense. The breasts are almost entirely fatty FINDINGS: MAMMOGRAPHIC FINDINGS: Stable oval mass at the upper, outer left breast. Parenchymal pattern is unchanged. No distortion or suspicious microcalcification. ULTRASOUND: Stable 9 x 4 x 8 mm circumscribed wider than tall hypoechoic mass at the 1:00 position left breast, 9 cm from the nipple. IMPRESSION: Stable benign oval mass at the left breast upper outer quadrant, as detailed above. BI-RADS Category 2: Benign finding(s). Reviewed, dictated and finalized at [facility]. IMPRESSION: Stable benign oval mass at the left breast upper outer quadrant, as detailed a mundo. BI-RADS Category 2: Benign finding(s).
== END 2024-09-15 12:12 | disposition home or self-care (01) ==
LOC: ANHIMG 12:18
PROVIDERS: PCP Family Medicine; Visit Provider Nurse Practitioner Family
DX: N63.21 Unspecified lump in the left breast, upper outer quadrant (principal); R92.8 Other abnormal and inconclusive findings on diagnostic imaging of breast
CPT/HCPCS: 76642; 77061; 77065; G0279

== ENCOUNTER 2025-01-19 10:56 | Outpatient (CLI) | payer BC, SELFPAY | END 2025-01-19 10:57 | disposition home or self-care (01) | PROVIDERS: PCP Family Medicine; Visit Provider Obstetrics & Gynecology | DX: Z30.431 Encounter for routine checking of intrauterine contraceptive device (principal) | CPT/HCPCS: 74018 ==

== ENCOUNTER 2025-02-12 00:12 | Day surgery (SDC) | payer BC, SELFPAY ==
[2025-02-03 10:35] VITALS: BMI 31.3
--- NOTE | 2025-02-03 10:56 | PC.NURSE ---
Report to the Outpatient Waiting Room, entrance under the green pavilion located off [facility], at time 0900 on date 02/12/2025. Planned Procedure Time: 1100.? Time changes happen often and if your time is changed the preop area will call you the afternoon before. - You and your visitor will be asked to self-screen and do not enter if you have any COVID symptoms. Please call surgeon if you need to reschedule. - A mask is optional within the hospital at this time. Patients may have clear liquids (water, carbonated beverages, clear teas, apple juice) until 3 hours prior to surgery with a maximum of 20 ounces. - No food from midnight until time of surgery and no smoking, or chewing tobacco (or any form of nicotine). No chewing gum, candy or mints. Take only the following medications with a SIP of water on the morning of surgery: Lexapro DO NOT STOP ANY OF YOUR OTHER PRESCRIPTION MEDICATIONS PRIOR TO SURGERY EXCEPT THE FOLLOWING Hold all vitamins and supplements for 3 days per anesthesiologist. Medications to discontinue per physician pt. verified ASA with office- N/A Please no make-up, nail croatian, hairspray, perfume, deodorant, or body powder the day of surgery.? No jewelry (including any body piercings) or valuables the day of surgery, leave them at home.? Please take a shower or bath the night before, or the morning of, surgery with an antibacterial soap.? Wear comfortable, loose fitting clothing.? - Jewelry must be removed prior to entering the operating room.? Rings and piercings that are not removed may be cut off. - The hospital will not accept responsibility for valuables.? - Please leave all valuables, including medications, at home the day of surgery. If you are going home after surgery, a licensed driver's license reviewing officer must drive you home.? - NO public transportation without another adult if you receive anesthesia. - We recommend that an adult stay with you for 24 hours following discharge. - We also recommend that you do not drive, make important decision, drink alcoholic beverages, or take any drugs that were not prescribed by your health care provider for at least 24 hours after your discharge time. Follow any additional instructions given to you from your surgeon. Telephone instructions given to patient and asked if any additional questions and then verbalized understanding. Patient advised to call surgeon office or pre surgery nurse liaison [phone] if any additional questions.
--- OUTSIDE RECORDS SUMMARY | 2025-02-12 00:15 | XMS_ITS | Continuity of Care Document ---
Author Organization [facility] Address [address] [address] Phone Care Team Providers Care Correctional Supervising Cook Name Role Phone Toni Perera MD Unavailable Unavailable Allergies, Adverse Reactions, Alerts Substance Reaction Status Criticality Penicillins Active No Information Medications Medication Instructions Dosage Effective Dates (start - stop) Status Comments lisinopril 20 mg-hydrochlorothiaz ryan 12.5 mg tablet take 1 tablet by oral route every day 1.00 tablet - Active Procedures Procedure Date PREV VISIT, NEW, AGE 18-39 Advance Directives Directive Yes / No Effective Date File Name No Information Encounters Encounter Description Practice Location Reason(s) For Visit Diagnoses Date Provider Providers Copied on Encounter [facility], [address], [id number], tel:[phone] [facility] No Information [address], [place], [id number] , [place]. tel:[phone] PREV VISIT, NEW, AGE 18-39 [facility], [address] [place], [place], [id number], tel:[phone] [facility] Medicine Physical (chief complaint) Dietary surveillance and counselingRoutine Medical ExamRoutine Medical Exam [address], [place], [id number] , . tel:[phone] Family History Family Member Type Diagnosis Age At Onset Father Problem (finding) nuclear palsy Mother Problem (finding) Hyperlipidemia Mother Problem (finding) Hypertension Sister Problem (finding) Alive and well Payers Payer name Insurance type Covered constitution party ID Authoriza tion(s) No Information Social History Type Description Quantity Date Captured Comments Sex Female Smoking Status No Information Chief Complaint And Reason For Visit No Information Plan Of Treatment Date Type Action Status Referral Ordered: US THYROID ordered History Of Present Illness Encounter Date Complaint History Of Prese nt Illness No Information Instructions Date Instruction Additional Infor elyse Physical activity counseling Rel ated to Dietary surveillance counseling Decrease caloric intake Related to Dietary surveillance counseling Assessments Type Assessment Date No Information
--- OUTSIDE RECORDS SUMMARY | 2025-02-12 00:15 | XMS_ITS | Clinical Summary ---
Author Organization [facility] Address [address] [place] [address] Care Team Providers Care Jeep Mechanic Name Role Phone Suhail Vazquez MD Primary Care Provider [phone] Source Comments [facility],non-owned Affiliates and Associated Physician Practices is amultiple site organization consisting of ambulatory clinics and hospital sitesin [place], [place], [place] and [place]. This disclosure is being madepursuant to the Care Everywhere program and may not contain all information available regarding this patient. Last updated 18.[facility] Allergies Active Allergy Reactions Criticality Noted Date Comments Penicillins Rash Medium 10/14/2017 Medications * Be aware that medications may not be up to date on this document. Alwaysverify current medications with the patient. Medication Sig Dispensed Refills Start Date End Date Status LISINOPRIL PO Active benzonatate (TESSALON) 200 MG capsule Take 1 capsule by mouth 3 times daily as needed for Cough 30 capsule 10/14/2017 Active Social History Tobacco Use Types Packs/Day Years Used Date Smoking Tobacco: Never Smokeless Tobacco: Never Sex and Gender Information Value Date Recorded Sex Assigned at Not on file Gender Identity Not on file Sexual Orientation Not on file Last Filed Vital Signs Vital Sign Reading Time Taken Comments Blood Pressure 130/84 10/14/2017 10:04 AM NATURAL RESOURCE SPECIALIST Pulse 79 10/14/2017 10:04 AM NATURAL RESOURCE SPECIALIST Temperature 36.4 C (97.6 F) 10/14/2017 10:04 AM NATURAL RESOURCE SPECIALIST Respiratory Rate 16 10/14/2017 10:04 AM NATURAL RESOURCE SPECIALIST Oxygen Saturation 98% 10/14/2017 10:04 AM NATURAL RESOURCE SPECIALIST Inhaled Oxygen Concentration - - Weight 81.6 kg (180 lb) 10/14/2017 10:04 AM NATURAL RESOURCE SPECIALIST Height 166.4 cm (5' 5.5 ) 10/14/2017 10:04 AM CS T Body Mass Index 29.5 10/14/2017 10:04 AM NATURAL RESOURCE SPECIALIST Plan of Treatment Health Maintenance Due Date Last Done Comments COLOGUARD (AGES 45-75) - COL ON CA SCREENING 1979 COLON MONITORING 1979 COLONOSCOPY - COLON CA SCREENING 1979 CT COLONOGRAPHY - COLON CA SCREENING 1979 Colorectal Cancer Screening 1979 FIT - COLON CA SCREENING 1979 FLEX SIG - COLON CA SCREENING 1979 LIPID TESTING 1979 MAMMOGRAM 1979 PAP SMEAR 1979 HIV SCREENING 1994 HEPATITIS C SCREENING 08/23/1997 DTAP/TDAP/TD VACCINES (1 - Tdap) 1998 HEPATITIS B VACCINE (1 of 3 - 19+ 3-dose series) 1998 COVID-19 VACCINE (1 - 2023-2 5 season) 2024 INFLUENZA VACCINE (#1) 2024 DEPRESSION SCREENING 11/19/2024 ZOSTER VACCINE (1 of 2) 2029 HIB VACCINE Aged Out No longer eligi ble based on patient's age to complete this topic HPV VACCINE Aged Out No longer eligi ble based on patient's age to complete this topic MENINGOCOCCAL (Group B) VACC INE SHARED DECISION-MAKING Aged Out No longer eligibl e based on patient's age to complete this topic MENINGOCOCCAL GROUPS A/C/Y/W VACCINE Aged Out No longer eligible b ased on patient's age to complete this topic PNEUMOCOCCAL VACCINE Aged Out No long er eligible based on patient's age to complete this topic Care Teams Jeep Mechanic Relationship Specialty Start Date End Date Suhail Vazquez MD [address] [place] [address] PCP - General Family Medicine 10/14/17
--- OUTSIDE RECORDS SUMMARY | 2025-02-12 00:15 | XMS_ITS ---
Author Organization [facility] Address [address] [place] [address] Care Team Providers Care Bench Assembler Operator Name Role Phone Unavailable Primary Care Physician Unavailab le Medications Name Start Date Expiration Date SIG Comments Kyleena 17.5 mcg/24 hr (up to 5 years) 19.5 mg intrauterine device 08/19/2024 08/20/2024 place 1 device by intrauterine route once Payers Insurance Name Company Name Plan Name Plan Number Policy Number Policy Group Number Start Date [place] [id number] N/A History of Encounters Visit Date Visit Type Provider 08/19/2024 My-IUD Tele-Med Consult Dr. Shane Bernard MD
--- OUTSIDE RECORDS SUMMARY | 2025-02-12 00:15 | XMS_ITS | Clinical Summary ---
Author Organization [facility] Address [address] [place] [address] Care Team Providers Care Gearcase Assembler Name Role Phone Suhail Vazquez MD Primary Care Provider [phone] Allergies Active Allergy Reactions Criticality Noted Date Comments Penicillins Rash Low 04/12/2020 Patient states she had a rash when she was a kid. Medications lisinopril-hydr oCHLOROthiazide 20-12.5 MG tablet Take 1 tablet by mouth daily. 01/30/2020 Active pantoprazole EC 40 MG tablet Take 40 mg by mouth every morning. 04/08/2020 Active ondansetron 8 MG tablet Take 8 mg by mouth every 8 (eight) hours as needed. 04/05/2020 Active XARELTO 15 MG tabletIndicatio ns:Started taking on 04/11 Take 15 mg by mouth 2 (two) times a day. Indications: Started taking on 04/1104/11/2020 Active ALPRAZolam 0.25 MG tablet Take 0.5 mg by mouth daily as needed. 04/05/2020 Active metoprolol tartrate 25 MG tablet Take 1 tablet (25 mg total) by mouth 2 (two) times daily. 60 tablet 04/12/2020 Active Social History Tobacco Use Types Packs/Day Years Used Date Smoking Tobacco: Never Smokeless Tobacco: Never Alcohol Use Standard Drinks/Week Comments Not Currently 0 (1 standard drink = 0.6 oz pur e alcohol) Comments No Sex and Gender Information Value Date Recorded Sex Assigned at Not on file Legal Sex Female 9:36 AM CDT Gender Identity Not on file Sexual Orientation Not on file Last Filed Vital Signs Vital Sign Reading Time Taken Comments Blood Pressure 134/86 07/23/2020 6:05 PM CDT Pulse 70 07/23/2020 8:42 PM CDT Temperature 36.4 C (97.6 F) 07/23/2020 6:05 PM CDT Respiratory Rate 18 07/23/2020 8:42 PM CDT Oxygen Saturation 100% 07/23/2020 8:42 PM CDT Inhaled Oxygen Concentration - - Weight 77.1 kg (170 lb) 07/23/2020 6:05 PM CDT Height 166.4 cm (5' 5.5 ) 07/23/2020 6:05 PM CDT Body Mass Index 27.86 07/23/2020 6:05 PM CDT Plan of Treatment Health Maintenance Due Date Last Done Comments Cervical Cancer Screening Pa p Smear (Age 30 to 64) Every 3 Years 1979 Colorectal Cancer Screening Colonoscopy (10 Years) 1979 Annual Physical 1982 Hepatitis C 1997 DTaP, Tdap and Td Vaccines ( 1 - Tdap) 1998 Hepatitis B Vaccines (1 of 3 - 19+ 3-dose series) 1998 Cervical Cancer Screening Pa p with HPV Testing (Age 30 to 64) Every 5 Years 2009 Cervical Cancer Screening with HPV 2009 Mammogram Screening 2019 COVID-19 Vaccine (2023-2 5 season) 2024 Influenza Adult (#1) 2024 HPV Vaccines Aged Out No longer eligi ble based on patient's age to complete this topic Meningococcal B Vaccine Aged Out No l onger eligible based on patient's age to complete this topic Meningococcal Vaccine Aged Out No tesfaye debby eligible based on patient's age to complete this topic Pneumococcal Vaccine: Pediat rics (0 to 5 Years) and At-Risk Patients (6 to 64 Years) Aged Out No longer eligible b ased on patient's age to complete this topic RSV Immunizations Under 20 Months Aged Out No longer eligible based on patient's age to complete this topic Insurance [facility] Care Teams Gearcase Assembler Relationship Specialty Start Date End Date Suhail Vazquez MD [address] [place] [address] PCP - General FAMILY PRACTICE 07/23/20
[2025-02-12 09:06] VITALS: BMI 31.8
[2025-02-12] MEDS: LACTATED RINGERS 1,000 ML 30 ML IV CONT (09:30)
[2025-02-12] MEDS: ACETAMINOPHEN 500 MG TABLET 1000 MG PO (09:34)
[2025-02-12 09:49] VITALS: BP 156/74; PULSE 84; RESP 14; TEMP 36.9; O2SAT 100
[2025-02-12 09:50] LABS: BEDSIDEPREGUCG Negative (Negative)
--- NOTE | 2025-02-12 10:44 | P.PNAN_ITS ---
Anes - Initial Pre Proc Eval Procedure: Operation Date: 02/12/25 11:00 Proposed Procedures p Hysteroscopy Dilation and Curettage with Bibiana Endometrial Ablation - Jose Luis Amos MD Date/Time: 02/12/25 10:44 Surgeon: Jose Luis Amos MD Pre Op Diagnosis: Irg Excessive Bleeding Patient Data Age: 44 Gender: F Height: 1.65 m Weight: 86.9 kg Last Vital Signs Temp 98.4 F 02/12/25 09:49 Pulse 84 02/12/25 09:49 Resp 14 02/12/25 09:49 BP 156/74 H 02/12/25 09:49 Pulse Ox 100 02/12/25 09:49 O2 Del Method Room Air 02/12/25 09:49 Allergies Allergy/AdvReac Type Severity Reaction Status Date / Time Penicillins Allergy Unknown Rash Verified 02/12/25 09:46 Home Medications ?Medication ?Instructions ?Recorded ?Confirmed ?Type aspirin 81 mg chewable tablet (St 81 mg PO DAILY 12/06/20 02/03/25 History Adam Aspirin) escitalopram oxalate 10 mg tablet 10 mg PO DAILY #90 tabs 10/06/24 02/12/25 Rx ferrous sulfate 325 mg (65 mg 325 mg PO ONCE #90 tabs 10/06/24 02/03/25 Rx iron) tablet lisinopril 10 1 tablet PO DAILY #90 tabs 10/06/24 02/12/25 Rx mg-hydrochlorothiazide 12.5 mg tablet Laboratory Tests 02/12/25 09:15 POC Urine HCG, Qual Negative (Negative) Patient hx anesthesia problems: none Family hx anesthesia problems: none Results Review: All pre-operative results and documents have been reviewed as part of the pre- operative evaluation. [facility] Past Medical History Medical History Anemia Palpitations Hematuria Bundle branch block Right Pulmonary embolism Right lower lobe Essential (primary) hypertension Anxiety Surgical History Surgical History S/P hernia repair Ventral hernia repair at the age of 9 Family History Family History Father Family history of respiratory disorder, Onset Age: 69 Patient's father is Hypertension Asthma Chronic obstructive pulmonary disease Mother Hypertension Sibling Hypertension Social History Social History Social History: The patient is single and has no children. 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 And she was going to start a new position prior to COVID but was put on hold due to the outbreak. She is a full code. She does not have a durable power middleware architect for healthcare. She occasionally drinks alcohol socially. She desires to be a full code. Lifelong nonsmoker no marijuana or illicit drugs patient denies using any energy drinks and occasionally drinks caffeinated beverages Smoking status: Never smoker Second hand tobacco smoke exposure: Yes Alcohol intake: current Drinks per week: 1 Alcohol use details: 1 drink per month- very rare Substance use: never Substance use type: does not use Lack of Transportation: No Lack of Food: Never True Current Housing: I Have Housing Concerned About Future Housing: No Difficulty Paying Gas/Electric Bills: No Difficulty Paying for Meds: No Currently Unemployed: No Education: Bachelor's Degree Difficulty w/ Childcare or Family Care: No Living arrangements: with family Occupation/Education: occupation Additional occupation/education comments: Nurse Gender identity (if verbalized by the patient): Female Spiritual care concerns: No Anes - Eval Final PreProcedure Day of Procedure 02/12/25 10:44 Patient weight: obese Lungs: normal air movement Airway: Mallampati scale class II Neurological: alert and oriented Last oral intake: >/= 8 hours ASA classification: III Emergent: no Anesthetic plan: proceed Anesthesia type and monitoring: general GIVS and standard monitoring Results Review: All pre-operative results and documents have been reviewed as part of the pre- operative evaluation. HTN, elevated BMI 31. Informed Consent: The patient's anesthetic plan and its attendant risks and benefits were discussed with the patient/family/POA. Questions were solicited and answers provided to the satisfaction of the patient/family/POA.
--- NOTE | 2025-02-12 11:31 | PM.IMHP ---
H&P: HPI History of Present Illness Date/Time: 02/12/25 11:31 Chief Complaint: Heavy periods Narrative: 44 y/o nulligravida with heavy, irregular, prolonged, painful menses. She does not desire future childbearing. She declines contraception. She is known to have a fibroid uterus. She has a history of pulmonary embolism. Review of Systems Review of Systems: All systems reviewed & are unremarkable except as noted in HPI and below PMFSH Past Medical History Medical History Anemia Palpitations Hematuria Bundle branch block Right Pulmonary embolism Right lower lobe Essential (primary) hypertension Anxiety Surgical History Surgical History S/P hernia repair Ventral hernia repair at the age of 9 Family History Family History Father Family history of respiratory disorder, Onset Age: 69 Patient's father is Hypertension Asthma Chronic obstructive pulmonary disease Mother Hypertension Sibling Hypertension Social History Social History Social History: The patient is single and has no children. 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 And she was going to start a new position prior to [place] but was put on hold due to the outbreak. She is a full code. She does not have a durable power litigation attorney associate for healthcare. She occasionally drinks alcohol socially. She desires to be a full code. Lifelong nonsmoker no marijuana or illicit drugs patient denies using any energy drinks and occasionally drinks caffeinated beverages Smoking status: Never smoker Second hand tobacco smoke exposure: Yes Alcohol intake: current Drinks per week: 1 Alcohol use details: 1 drink per month- very rare Substance use: never Substance use type: does not use Lack of Transportation: No Lack of Food: Never True Current Housing: I Have Housing Concerned About Future Housing: No Difficulty Paying Gas/Electric Bills: No Difficulty Paying for Meds: No Currently Unemployed: No Education: Bachelor's Degree Difficulty w/ Childcare or Family Care: No Living arrangements: with family Occupation/Education: occupation Additional occupation/education comments: Nurse Gender identity (if verbalized by the patient): Female Spiritual care concerns: No Meds Home Medications and Allergies Home Medications ?Medication ?Instructions ?Recorded ?Confirmed ?Type aspirin 81 mg chewable tablet (St 81 mg PO DAILY 12/06/20 02/03/25 History Adam Aspirin) escitalopram oxalate 10 mg tablet 10 mg PO DAILY #90 tabs 10/06/24 02/12/25 Rx ferrous sulfate 325 mg (65 mg 325 mg PO ONCE #90 tabs 10/06/24 02/03/25 Rx iron) tablet lisinopril 10 1 tablet PO DAILY #90 tabs 10/06/24 02/12/25 Rx mg-hydrochlorothiazide 12.5 mg tablet Allergies Allergy/AdvReac Type Severity Reaction Status Date / Time Penicillins Allergy Unknown Rash Verified 02/12/25 09:46 Vital Signs Vital Signs - 24 hr 02/12/25 09:49 Temperature 36.9 C Pulse Rate 84 Respiratory Rate 14 Blood Pressure 156/74 H Pulse Oximetry 100 Oxygen Delivery Room Air Exam Const: Orientation/consciousness: patient oriented x3 Other: Well-developed, well-nourished female in no acute distress. Neck: Thyroid: thyroid normal Lymphatic: no lymphadenopathy noted (in neck, axilla or inguinal nodes) Resp: Effort & Inspection: normal respiratory effort Auscultation: clear to auscultation bilaterally Cardio: Rate: regular rate Rhythm: regular rhythm Heart sounds: S1 normal heart sound present and S2 normal heart sound present GI: Other: ABD: Soft, nontender, nondistended. No guarding or rebound tenderness. No hepatosplenomegaly. : General: Yes no CVA tenderness Other: External genitalia: normal female hair distribution, without lesion. Urethral meatus: no lesion, non prolapsed. Bladder: no mass, nontender Vagina: well-estrogenized, without lesion or discharge. No cystocele or rectocele. Cervix: no lesion or discharge. Uterus: small, anteverted, freely mobile, nontender Adnexa: no mass or tenderness. Anus/perineum: no lesions, nontender Back/Spine/Pelvis: Back: no CVA tenderness Skin: General skin exam: normal color and no rashes or lesions noted Neuro: General: patient oriented x3 Extrem: Other: Extremities: nontender with no edema Psych: Mental Status: mental status grossly normal Affect: normal affect Assessment and Plan Assessment and plan (1) Menometrorrhagia: Code(s): N92.1 - Excessive and frequent menstruation with irregular cycle Status: Acute Assessment and Plan: A: Menometrorrhagia. P: She desires surgical management of her problem. I have offered hysteroscopy with dilation and sharp curettage and endometrial ablation. She understands ablation to be insufficient for contraception. She understands risks of surgery to include risks of anesthesia, risks of pain, infection, bleeding, blood products, thromboembolic phenomena and damage to adjacent structures such as bowel, bladder, ureters, blood vessels and nerves. She understands all these risks and elects to proceed with surgery.
--- NOTE | 2025-02-12 11:34 | WPDHPUPDATE1 ---
History and Physical Update Update Date/Time: 02/12/25 11:34 History and Physical has been reviewed, including an updated exam of the patient. There are NO changes in the patient's condition. Risks, benefits, and alternatives have been discussed and questions answered. Patient agrees to proceed with procedure.
[2025-02-12] MEDS: LIDOCAINE 1% LOCAL INJ 10 ML VIAL INFILTRATE (11:45)
[2025-02-12 12:12] VITALS: BP 139/71; PULSE 106; RESP 16; O2SAT 96
--- NOTE | 2025-02-12 12:13 | W.PM.PROC2 ---
Procedure Note - Detailed Date of Procedure 02/12/25 Pre-op Diagnosis Menometrorrhagia Post-op Diagnosis Same Procedure Performed Hysteroscopy Dilation and sharp curettage Endometrial ablation Surgeon Jose Luis Amos MD Anesthesia MAC and Local (1% lidocaine) Findings Endometrial cavity contour somewhat distorted, presumably due to submucous myomata. Otherwise, endometrial cavity unremarkable. Description of Procedure The patient was taken to the operating room where she was prepared and draped in the usual sterile fashion in the dorsal lithotomy position. The bladder was drained with a red rubber catheter. A sterile speculum was placed into the vagina. The anterior lip of the cervix was grasped with single-tooth tenaculum. Ten mL of 1% lidocaine was administered in a paracervical block. The cervix was then gently dilated using Hegar dilators until a 7 mm dilator could be passed. Hysteroscopy was performed using sterile saline as a distention medium. Findings are as noted above. Sharp curettage was then performed, and endometrial curettings were collected on a Telfa pad and passed off to be sent to pathology. Finally, the the Bibiana device was advanced and endometrial ablation commenced without difficulty. The device was withdrawn and a second look was taken using the hysteroscope. Excellent coverage of the endometrial cavity was noted. The tenaculum was removed. Hemostasis was excellent. Sponge, lap, needle and instrument counts were correct. The patient was awakened and taken to the recovery room in stable condition. I was present and scrubbed through the entire procedure. Implants None Estimated Blood Loss 5 Drains No Packing No Pathology Yes (Endometrial curettings) Complications None Condition Stable Disposition PACU
[2025-02-12 12:40] VITALS: BP 129/74; PULSE 80; RESP 16; O2SAT 98
[2025-02-12 13:09] VITALS: BP 141/76; PULSE 71; RESP 16
== END 2025-02-12 13:18 | disposition home or self-care (01) ==
PROVIDERS: Anesthesiology; PCP Family Medicine; Visit Provider Obstetrics & Gynecology
PROC: 0U5B8ZZ Destruction of Endometrium, Via Natural or Artificial Opening Endoscopic (ICD-10-PCS; CPT 58563; principal; 2025-02-12 11:00)
DX: N92.1 Excessive and frequent menstruation with irregular cycle (principal); G89.18 Other acute postprocedural pain; I10 Essential (primary) hypertension; F41.9 Anxiety disorder, unspecified; D64.9 Anemia, unspecified; R00.2 Palpitations; I45.10 Unspecified right bundle-branch block; E66.9 Obesity, unspecified; Z68.31 Body mass index [BMI] 31.0-31.9, adult; Z79.82 Long term (current) use of aspirin; Z98.890 Other specified postprocedural states; Z86.711 Personal history of pulmonary embolism
CPT/HCPCS: 58563; 88305; A9270; J2003; J2250; J2704; J3010; J7120

== ENCOUNTER 2025-06-12 07:13 | Outpatient (CLI) | payer BC, SELFPAY ==
--- NOTE | ~2025-06-12 | MM_ITS ---
EXAMINATION: MM screening gregg BI w winnie HISTORY: Screening TECHNIQUE: Craniocaudal and mediolateral oblique 3-D tomosynthesis images were obtained and synthetic 2-D images were generated. CAD analysis was submitted and interpreted. COMPARISON: Comparison to multiple prior studies sequentially, with oldest reviewed study dated 02/05. BREAST PARENCHYMAL COMPOSITION: Not dense: There are scattered areas of fibroglandular density. FINDINGS: There is no evidence of suspicious mass, calcification, or architectural distortion to sugg est malignancy in either breast. There has been no suspicious interval change. IMPRESSION: 1. No mammographic evidence of malignancy. 2. Recommend routine screening mammography in one year. BI-RADS Category 1: Negative Reviewed, dictated and finalized at location A.
--- OUTSIDE RECORDS SUMMARY | 2025-06-12 07:18 | XMS_ITS | Clinical Summary ---
Author Organization [facility] Address [address] [place] [address] Care Team Providers Care Statuary Painter Name Role Phone Suhail Vazquez MD Primary Care Provider [phone] Source Comments [facility],non-owned Affiliates and Associated Physician Practices is amultiple site organization consisting of ambulatory clinics and hospital sitesin [place], [place] and [place]. This disclosure is being madepursuant to the Care Everywhere program and may not contain all information available regarding this patient. Last updated 18.[facility] Allergies Active Allergy Reactions Criticality Noted Date Comments Penicillins Rash Medium 10/14/2017 Medications * Be aware that medications may not be up to date on this document. Alwaysverify current medications with the patient. LISINOPRIL PO Active benzonatate (TESSALON) 200 MG capsule Take 1 capsule by mouth 3 times daily as needed for Cough 30 capsule 10/14/2017 Active Social History Tobacco Use Types Packs/Day Years Used Date Smoking Tobacco: Never Smokeless Tobacco: Never Comments Unknown Sex and Gender Information Value Date Recorded Sex Assigned at Not on file Legal Sex Female 9:42 AM BOOK PUBLISHER Gender Identity Not on file Sexual Orientation Not on file Last Filed Vital Signs Vital Sign Reading Time Taken Comments Blood Pressure 130/84 10/14/2017 10:04 AM BOOK PUBLISHER Pulse 79 10/14/2017 10:04 AM BOOK PUBLISHER Temperature 36.4 C (97.6 F) 10/14/2017 10:04 AM BOOK PUBLISHER Respiratory Rate 16 10/14/2017 10:04 AM BOOK PUBLISHER Oxygen Saturation 98% 10/14/2017 10:04 AM BOOK PUBLISHER Inhaled Oxygen Concentration - - Weight 81.6 kg (180 lb) 10/14/2017 10:04 AM BOOK PUBLISHER Height 166.4 cm (5' 5.5) 10/14/2017 10:04 AM CS T Body Mass Index 29.5 10/14/2017 10:04 AM BOOK PUBLISHER Plan of Treatment Health Maintenance Due Date Last Done Comments COLOGUARD (AGES 45-75) - COL ON CA SCREENING 1979 COLON MONITORING 1979 COLONOSCOPY - COLON CA SCREENING 1979 CT COLONOGRAPHY - COLON CA SCREENING 1979 Colorectal Cancer Screening 1979 FIT - COLON CA SCREENING 1979 FLEX SIG - COLON CA SCREENING 1979 LIPID TESTING 1979 MAMMOGRAM 1979 HIV SCREENING 1994 HEPATITIS C SCREENING 08/23/1997 DTAP/TDAP/TD VACCINES (1 - Tdap) 1998 HEPATITIS B VACCINE (1 of 3 - 19+ 3-dose series) 1998 PAP SMEAR 2000 HPV VACCINE (1 - 3-dose SCDM series) 2006 COVID-19 VACCINE (1 - 2023-2 5 season) 2024 DEPRESSION SCREENING 11/19/2024 INFLUENZA VACCINE (#1) 2025 ZOSTER VACCINE (1 of 2) 2029 HIB [...] patient's age to complete this topic Insurance SELF PAY NO INSURANCE Member Subscriber Plan / Payer (Ef fective for All Dates) Name:Kirsten Mcelroy Member ID:Not on file Relation to Subscriber:Not on file Name:KIRSTEN MCELROY Subscriber ID:Not on file (Home) Address: [address] [place] [address] Payer ID:Not on file Group ID:Not on file Type:Self Pay Address: [place], [place] Care Teams Statuary Painter Relationship Specialty Start Date End Date Suhail Vazquez MD [address] [place] [address] PCP - General Family Medicine 10/14/17
--- OUTSIDE RECORDS SUMMARY | 2025-06-12 07:18 | XMS_ITS | Clinical Summary ---
Author Organization [facility] Address [address] [place] [address] Care Team Providers Care Inspector Eyeglass Name Role Phone Suhail Vazquez MD Primary Care Provider [phone] Allergies Active Allergy Reactions Criticality Noted Date [...] 6:05 PM CDT Height 166.4 cm (5' 5.5) 07/23/2020 6:05 PM CDT Body Mass Index [...] of 3 - 19+ 3-dose series) 1998 HPV Vaccines (1 - 3-dose SCD M series) 2006 Cervical Cancer Screening Pa p with HPV Testing (Age 30 to 64) Every 5 Years 2009 Cervical Cancer Screening with HPV 2009 Mammogram Screening 2019 COVID-19 Vaccine ( - 2023-2 5 season) 2024 Meningococcal B Vaccine Aged Out No l onger eligible based on patient's age to complete this topic Meningococcal Vaccine Aged Out No tesfaye debby eligible based on patient's age to complete this topic Pneumococcal Vaccine: Pediat rics (0 to 5 Years) and At-Risk Patients (6 to 49 Years) Aged Out No longer eligible b ased on patient's age to complete this topic RSV Immunizations Under 20 Months Aged Out No longer eligible based on patient's age to complete this topic Insurance [facility] Care Teams Inspector Eyeglass Relationship Specialty Start Date End Date Suhail Vazquez MD [address] [address] PCP - General FAMILY PRACTICE 07/23/20
--- OUTSIDE RECORDS SUMMARY | 2025-06-12 07:18 | XMS_ITS | Continuity of Care Document ---
Author Organization [facility] Address [address] [place] [address] Phone Care Team Providers Care Care Program Resident Name Role Phone Toni Perera MD Unavailable [...] Diagnoses Date Provider Providers Copied on Encounter [facility], [address] [place], [place], [id number], tel:[phone] [facility] No Information [address] [place], [place], [id number] , [place]. tel:[phone] PREV VISIT, NEW, AGE 18-39 [facility], [address] [place], [place], [id number], tel:[phone] [facility] Medicine Physical (chief complaint) Dietary surveillance and counselingRoutine Medical ExamRoutine Medical Exam [address] [place], [place], [id number] , . tel:[phone] Family History Family Member Type Diagnosis Age At Onset Father Problem (finding) nuclear palsy Mother Problem (finding) Hyperlipidemia Mother Problem (finding) Hypertension Sister Problem (finding) Alive and well Payers Payer name Insurance type Covered alliance party ID Authoriza tion(s) No Information Social [...]
== END 2025-06-12 07:14 | disposition home or self-care (01) ==
LOC: ANHIMG 07:16
PROVIDERS: PCP Family Medicine; Visit Provider Family Medicine
DX: Z12.31 Encounter for screening mammogram for malignant neoplasm of breast (principal)
CPT/HCPCS: 77063; 77067